=== PATIENT | female | born 1950 | race Caucasian/White ===

== ENCOUNTER 2016-12-16 12:40 | Day surgery (SDC) | payer MEDICARE ==
[~2016-12-16] VITALS: Ht 170.2 cm; Wt 133.8 kg
[~2016-12-16 12:40] MED LIST: 0.9% Sodium Chloride 1,000 ML IV PRN; ASPI81TA2 PO; CALC-846 PO; HCTZ25 PO; MELO-253 PO; OMEP20CA11 PO; Sodium Chloride LOK Flush 10 mL Syringe IV PRN; ZOC10 PO; fentaNYL-PF 50 mCg/mL 2 mL Inj IVPUSH PRN
[2016-12-16 13:26] VITALS: BP 145/87; PULSE 67; RESP 16; O2SAT 97
--- NOTE | 2016-12-16 14:17 | PCM.ENDCOL ---
Colonoscopy Date of Service: Dec 16, 2016 Physician Kamlesh Hunter MD Pre Procedure Diagnosis: screening Post Procedure Dx & Findings: polyp hemmorhoids Procedure Colonoscopy PROCEDURE IN DETAIL: Prep adequate Withdrawal time 17 minutes After unremarkable rectal examination the Olympus video colonoscope was inserted patient's anal canal and was advanced to cecum. Landmarks were identified including the ileocecal valve and appendiceal orifice. Scope was withdrawn systematically. Visualized colonic mucosa showed healthy shiny mucosa with normal healthy-appearing vasculature. In the ascending colon there was a 1 mm polyp was removed completely using cold forceps. In the transverse colon there was a 3 mm polyp which was removed completely using cold snare. In the descending colon, there were two 1 mm polyps which were removed completely using cold forceps. In the rectum, there was a 2 mm polyp which was removed completely using cold snare. In the rectum retroflexion was done which showed hemorrhoids. Anal canal was inspected carefully on the way out and hemorrhoids noted. Impression Polyp 5 status post complete removal Hemorrhoids Recommendation Repeat colonoscopy in 3 years Presedation Assessment Risks and Benefits Informed consent was obtained from the patient after all risks and benefits including but not limited to drug reaction, infection, pain, bleeding, perforation, as well as alternatives were discussed. Patient monitoring Continuous pulse oximetry, cardiac monitoring, blood pressure monitoring, IV access, and oxygen at 2L per nasal cannula. Periprocedural Fentanyl: Fentanyl 125mcg Incrementally Midazolam: Midazolam 6mg Incrementally Complications There were no periprocedural complications identified. Post Procedure Plan Post Procedure Recommendations 1. Restrict activities today. 2. Resume normal activities in the morning. 3. Resume medications. 4. Patient informed of normal post procedure side effects as bloating, drowsiness, blood streaking in the stool. 5. average risk CRCS. If colon polyps come back as: -Hyperplastic- can repeat colonoscopy in 10 years -Tubular adenoma- repeat colonoscopy in 5 years -Tubulovillous/villous adenoma- repeat colonoscopy in 3 years -If any dysplasia- return to clinic as soon as possible 6. Please don't hesitate to call me with any questions. Kamlesh Hunter MD Dec 16, 2016 14:17
[2016-12-16 14:19] VITALS: BP 120/82; PULSE 62; RESP 15; O2SAT 96
[2016-12-16 14:29] VITALS: BP 107/64; PULSE 59; RESP 15; O2SAT 95
[2016-12-16 14:39] VITALS: BP 125/73; PULSE 56; RESP 15; O2SAT 97
--- NOTE | 2016-12-18 14:57 | PATH ---
SURGICAL PATHOLOGY Attending Physician:Kamlesh Hunter M.D. CASE STATUS: Signed Out PATIENT NAME: JAIME HANEY PID: [id number] : 1950 DATE COLLECTED:12/16/2016 20:17 SPECIMEN: 1: Colon, Biopsy 2: Colon, Biopsy 3: Colon, Biopsy 4: Rectum, Biopsy CLINICAL HISTORY: 1). ASCENDING POLYP 2). TRANSVERSE POLYP 3). DESCENDING POLYP 4). RECTUM POLYP FINAL DIAGNOSIS: 1. Ascending Colon, Polyp, Biopsy: Colonic mucosa with a benign lymphoid aggregate. Negative for dysplasia and malignancy. Additional levels were examined. 2. Transverse Colon, Polyp, Biopsy: Serrated lesion, favor hyperplastic polyp. Additional levels were examined. 3. Descending Colon, Polyp, Biopsy: Colonic mucosa with thickened muscularis mucosae, consistent with benign leiomyoma. Negative for atypia, epithelial dysplasia or malignancy. 4. Rectum, Polyp, Biopsy: Hyperplastic polyp. ICD10 K63.5 GROSS DESCRIPTION: The specimen is received in four formalin filled containers labeled with the patient's name. 1). The specimen is sublabeled "ascending polyp" and consists of a 0.3 x 0.2 x 0.2 CM portion of tissue which is entirely submitted in cassettes 1A. 2). The specimen is sublabeled "transverse polyp" and consists of 3 tiny portions of tissue which aggregate to 0.3-0.3 x 0.2 CM. The specimen is entirely submitted in cassette 2A. 3). The specimen is sublabeled "descending polyp" and consists of 2 portions of tissue which aggregate to 0.3 x 0.3 x 0.2 CM. The specimen is entirely submitted in cassette 3A. 4). The specimen is sublabeled "rectal polyp" and consists of a 0.4 x 0.4 x 0.3 CM portion of tissue which is entirely submitted in cassette 4A. 12/16/2016 [facility] ICD-9 CODES: CPT CODES: 1: 00626 2: 03151 3: 68004 4: 80595 Electronically Signed Out Irais Castro MD [facility] Pathology [facility], [place] [address] Technical component performed at [facility], [facility] [address], [place], [address]
[2017-01-07] MEDS ORDERED: SIMV10TA4 PO (14:10)
[2017-01-07] MEDS ORDERED: ASPI-973 PO (14:10)
[2017-01-07] MEDS ORDERED: CELE100C85 PO (14:10)
[2017-01-07] MEDS ORDERED: HYDR25TA4 PO (14:10)
== END 2016-12-16 23:59 | disposition home or self-care (01) ==
LOC: END 12:40
PROVIDERS: ATTEND Internal Medicine
DX: Z12.11 Encounter for screening for malignant neoplasm of colon (principal); K63.5 Polyp of colon; K62.1 Rectal polyp; K64.8 Other hemorrhoids; K21.9 Gastro-esophageal reflux disease without esophagitis; E78.00 Pure hypercholesterolemia, unspecified; I10 Essential (primary) hypertension; Z79.82 Long term (current) use of aspirin

== ENCOUNTER 2017-01-10 05:31 | Day surgery (SDC) | payer MEDICARE ==
[~2017-01-10] VITALS: Ht 170.2 cm; Wt 130.9 kg
[2017-01-10] VITALS (10 sets, daily range): BP systolic 109–138; BP diastolic 57–67; PULSE 57–67; RESP 11–18; O2SAT 93–99
[~2017-01-10 05:31] MED LIST changes: -0.9% Sodium Chloride 1,000 ML IV PRN; +ASPI-973 PO; -ASPI81TA2 PO; +CELE100C85 PO; -HCTZ25 PO; +HYDR25TA4 PO; +SIMV10TA4 PO; -Sodium Chloride LOK Flush 10 mL Syringe IV PRN; -ZOC10 PO; -fentaNYL-PF 50 mCg/mL 2 mL Inj IVPUSH PRN
[2017-01-10] MEDS ORDERED: Propofol 10,000 mCg/mL 20 mL Inj ONE (05:32)
[2017-01-10] MEDS ORDERED: fentaNYL-PF 50 mCg/mL 2 mL Inj ONE (05:32)
[2017-01-10] MEDS ORDERED: Ondansetron 2 mg/mL 2 mL Inj ONE (05:32)
[2017-01-10] MEDS ORDERED: Succinylcholine Chloride 20 mg/mL 5 mL Inj ONE (05:32)
[2017-01-10] MEDS ORDERED: MetoCLOpramide 5 mg/mL 2 mL Inj ONE (05:32)
[2017-01-10] MEDS ORDERED: Dexamethasone 4 mg/mL Inj ONE (05:32)
[2017-01-10] MEDS: Lactated Ringer's 1,000 ML IV SCH ×2 (05:34→07:35)
[2017-01-10] MEDS ORDERED: ACID CONTROLLER PO (05:44)
[2017-01-10] MEDS ORDERED: Lactated Ringer's 500 ML IV PRN (07:49)
[2017-01-10] MEDS ORDERED: Lactated Ringer's 1,000 ML IV SCH (07:49)
[2017-01-10] MEDS ORDERED: EPHEDrine Sulfate 50 mg/mL Inj IVPUSH PRN (07:50)
[2017-01-10] MEDS ORDERED: Phenylephrine 10,000 mCg/mL Inj IVPUSH PRN (07:50)
[2017-01-10] MEDS ORDERED: Atropine 0.4 mg/mL Inj IVPUSH PRN (07:50)
[2017-01-10] MEDS ORDERED: Labetalol 5 mg/mL 4 mL Inj IV PRN (07:50)
[2017-01-10] MEDS ORDERED: fentaNYL-PF 50 mCg/mL 2 mL Inj IVPUSH PRN (07:50)
[2017-01-10] MEDS ORDERED: Ondansetron 2 mg/mL 2 mL Inj IVPUSH PRN ×2 (07:50→09:15)
[2017-01-10] MEDS ORDERED: MetoCLOpramide 5 mg/mL 2 mL Inj IVPUSH PRN (07:50)
--- NOTE | 2017-01-10 07:52 | PCM.HPANE ---
Patient Data Surgeon Admitting Provider: Attending Provider:Ashley Green MD Primary Care Physician:Kate Cruz PA-C Other Provider:Harjinder Larson Anesthesia Reason for Visit Abnormal Uterine Bleeding Ht/WT & BMI Height (Feet): 5 Height (Inches): 7 Weight (Kilograms): 130.9 Body Mass Index 45.00 Allergies Coded Allergies: Nabumetone (Verified Allergy, Severe, SWELLING, ITCHING, 04/12/13) Uncoded Allergies: PEANUTS (Allergy, Severe, ANAPHYLAXIS, 04/12/13) Past Anesthesia History Anesthesia History: Denies:: Abnormal Airway, Anesthesia Reactions, Difficult Intubation, Fam Anesthesia Reaction, Fam Malignant Hypertherm, Malignant Hyperthermia Diabetes History Hx Diabetes?: No MRSA MRSA: No Medications Blood Thinner: Aspirin Hypertension Medication: Yes (HCTZ) Home Meds Incl Beta Tanika: No Reported Medications [Acid Controller] No Conflict Check20 Mg PO DAILY 01/10/17 Simvastatin 10 Mg Rdhivc69 Mg PO HS Ref 0 01/07/17 Hydrochlorothiazide 25 Mg Dwffqq44 Mg PO DAILY 30 Days Ref 0 01/07/17 Celecoxib 100 Mg Fydtsym274 Mg PO BID 01/07/17 Aspirin 81 Mg Xkzpsq10 Mg PO DAILY Ref 0 01/07/17 Discontinued Reported Medications Calcium Carbonate/Mag Hydrox (Antacid Chewable Tablet)1 Each Tab.chew1 Each PO DIRECTED PRN For Dyspepsia or Heartburn 12/13/16 Meloxicam 15 Mg Xmjrat17 Mg PO DAILY 30 Days Ref 0 12/13/16 Omeprazole 20 Mg Capsule.dr20 Mg PO DAILY Ref 0 12/13/16 Aspirin-Expunged Drug, Do Not Renew! 81 Mg Tab81 Mg PO DAILY 04/12/13 Hydrochlorothiazide-Expunged, Do Not Renew! 25 Mg Uwfpml49 Mg PO DAILY 04/12/13 Simvastatin-Expunged Drug, Choose New Med! 10 Mg Edvuqx66 Mg PO HS 04/12/13 History History of ENT Problems?: No HEENT History: Denies:: Abnormal Airway Cataracts Difficult Intubation Dysphagia Glaucoma Hearing Problem Sinus Problem TMJ Denture Type: None Teeth Condition: Within Normal Limits Hx of Heart Problems?: Yes Cardiovascular History: Positive for:: Hypertension Hx of Respiratory Problem?: No Respiratory History: Positive for:: Asthma Use of C-PAP Machine (ANDRES+) Hx Neurologic Problems?: No Neurological History: Denies:: CVA Hx of GI Problems?: Yes Hx of Problems?: No Other Pertinent History: Abnormal uterine bleeding Female Hx: Denies:: Currently Endometriosis (Endometrial polyp) Skin History: Positive for:: History Skin Disorders? (ECZEMA) Denies:: Pressure Ulcers Hx Musculoskeletal Problems?: Yes Musculoskeletal History: Positive for:: Musculoskeletal Trauma (Elbow fx) Hx of Psycho/Social Problems?: No Hx Surgeries?: Yes (Elbow fx, D&C for endometrial polyp) Hx Any Other Health Problems?: Yes Other History: Denies:: Cancer Endocrine Disease Hospitalization Thyroid Disease History Blood Transfusions: Denies:: Blood Transfusions Hx Diabetes: No Hx Alcohol Use: NoHx Substance Use: No Smoking Status: Never Smoker Have You Smoked inLast 12 mo: No Stop/Bang S-Snoring: Do You Snore Loudly: Yes T-Tired: feel tired, fatigued: Yes O-Obsered: Observed not breath: Yes P-Blood Pressure: treated: Yes B- Body Mass Index > 35 kg/m2: Yes A- Age over 50: Yes N- Neck Large Circumference: Yes G- Gender Male: No ANDRES Total Score: 7 Risk Assessment Category Category 1A: Patient has history of documented sleep apnea, and HAS NOT received any narcotic, sedative or anesthesia administration during this stay. Category 1B: Patient has history of documented sleep apnea, and HAS received any narcotic , sedative or anesthesia administration during this stay Category 2: Patient has SUSPECTED Obstructive Sleep Apnea, and HAS received any narcotic , sedative or anesthesia administration during this stay. Category 3: Patient has SUSPECTED Obstructive Sleep Apnea and HAS NOT received narcotic, sedative or anesthesia administration during this stay. Category 4: Outpatient in Procedural Areas with known sleep apnea or who screen positive for High Risk via the STOP/BANG questionnaire. Exam Exam Vital Signs Vital Signs Date Time Temp Pulse Resp B/P Pulse Ox O2 Delivery O2 Flow Rate FiO2 01/10/17 05:59 35.9 64 18 138/67 96 Room Air 01/10/17 05:51 CPAP/BIPAP General Appearance: Alert, Oriented X3, Cooperative, No Acute Distress HEENT/AIRWAY: MP 2, Neck Movement (FROM), Mouth Opening (3 FBMO) Lungs: Clear to Auscultation, Normal Air Movement Heart: Exam Unremarkable, Regular Rate/Rhythm, No Murmurs/Rubs/Gallops Meds/Labs/Diagnostics Admission Meds Current Medications Lactated Ringer's (Lr) 1,000 ml @ 120 mls/hr Q8H20M IV Last administered on t 05:34; Start 01/10/17 at 05:00; Stop 01/10/17 at 13:19 Plan Impression Patient chart reviewed, patient interviewed and anesthestic plan with risks, benefits, and alternatives discussed, and informed consent obtained. NPO per Anesth. Guidelines: Yes ASA Physical Status: ASA3 Severe Disease (BMI 45) Anesthetic Plan: GA Bene/Risks/Altern/Consents: Yes HP Complete Prior to Induction: Yes Billy Mensah MD January 10, 2017 07:20
[2017-01-10] MEDS ORDERED: oxyCODONE-Acetamin 5-325 mg Tablet PO PRN (09:15)
[2017-01-10] MEDS ORDERED: HYDROcodone-APAP 5-325 mg Tablet PO ONE (09:15)
--- NOTE | 2017-01-10 09:16 | PCM.DIGYN ---
Surgical Discharge Instruction Dates of Hospitalization Date of Hospital Admission Providers Admitting Physician: Primary Care Physician: Kate Cruz PA-C Attending Physician: Ashley Green MD Diagnosis at Time of Discharge Diagnosis at time of discharge postmenopausal bleeding Post-operative diagnosis postmenopausal bleeding uterine polyp Problems: Diet Discharge Diet: No restrictions Activity Discharge Activity-General: Try not to overdue, Be up and about, Balance rest and activity Dressing and Incisional Care Hygiene: May shower, NO bathtub, hot tub or whirlpool Additional Instructions Discharge Instructions Please call office if heavy vaginal bleeding, severe abdominal pain, foul smelling discharge, fever more than 100.4 NO sex or tampon for the next 2 weeks Follow Up Plan Follow-up Provider (F9): Ashley Green MD Follow-up appointment: Days, Weeks Call your provider for: Fever, Chills, Shortness of breath, Vomitting, Heavy vaginal bleeding Ashley Green MD January 10, 2017 09:16
--- NOTE | 2017-01-10 12:16 | PCM.ANEP1 ---
Post Anesthesia Phase 1 PACU Phase 1 Assessment Vital Signs Vital Signs Date Time Temp Pulse Resp B/P Pulse Ox O2 Delivery O2 Flow Rate FiO2 01/10/17 10:54 57 18 109/66 94 Room Air 01/10/17 09:05 63 18 121/65 97 Room Air 01/10/17 09:00 60 11 113/58 93 Room Air 01/10/17 08:55 62 14 118/64 96 Room Air 01/10/17 08:45 36.3 62 14 114/62 94 Room Air 01/10/17 08:35 62 16 119/64 96 Room Air 01/10/17 08:29 63 17 110/57 99 Simple Mask 8 01/10/17 08:25 67 18 120/64 97 Simple Mask 8 01/10/17 08:19 36.6 65 17 129/63 97 Simple Mask 8 01/10/17 05:59 35.9 64 18 138/67 96 Room Air 01/10/17 05:51 CPAP/BIPAP Anesthetic Administered: GA Level of Alertness: Awake, talking JAMES's with Equal Strength: Yes Pain: No Nausea or Vomiting: No Cardiovascular Function and Hy: Yes Oxygen Delivery: Room Air Lungs: Clear to Auscultation, Normal Air Movement Dermatome Level: Full Sensation Complications: No Follow up Care: No Billy Mensah MD January 10, 2017 12:16
--- NOTE | 2017-01-10 13:14 | OP ---
[address] [address] OPERATIVE REPORT PATIENT: JAIME HANEY : 1950 MR#: [id number] ADMIT: 01/10/2017 JOB ID: [id number] DATE OF SURGERY: 01/10/2017 SURGEON: Ashley Green MD. PREOPERATIVE DIAGNOSIS(ES): Postmenopausal bleeding, possible uterine fibroid, polyp. POSTOPERATIVE DIAGNOSIS(ES): Postmenopausal bleeding, possible uterine fibroid, polyp. INDICATIONS: A 66-year-old female. She is post menopause. She presented to our office for postmenopausal bleeding and ultrasound showed thickened endometrium. Plan was made to have hysteroscopy, D and C, and possible polypectomy. Discussed with patient about the indication, benefits, risks, alternatives of the procedure. Patient understood there is risk of infection, bleeding, injury to the organs of the uterus around the uterus including but not limited to the bladder, ureters, major vessels, nerves, and bowels. Informed consent signed. PROCEDURE IN DETAIL: The patient was transferred to operating room After anesthesia was noted to be adequate. She was placed in dorsal lithotomy position. She was prepared and draped in normal sterile fashion. A speculum inserted to vagina to expose cervix. The cervix was grasped by single-tooth tenaculum. The uterine cavity was sounded to 9 cm. At this time, the cervix was gently dilated to 7 mm. The MyoSure scope inserted for examination and noticed there is about 2 x 1 cm size polyp from the left uterine wall. Then this polyp was removed by MyoSure and confirmed complete removal, and then instruments removed from her uterus and a sharp curettage was performed. Specimen sent to Pathology. The patient tolerated the procedure well. All instrument, needles, laps and gauzes counted correct twice. Hemostasis was confirmed. The patient was transferred to recovery room in a stable condition. [facility]ITAL[facility]essie
--- NOTE | 2017-01-13 11:07 | PATH ---
SURGICAL PATHOLOGY Attending Physician:Ashley Green MD CASE STATUS: Signed Out PATIENT NAME: JAIME HANEY PID: [id number] : 1950 DATE COLLECTED:01/10/2017 16:46 SPECIMEN: Endometrium, Biopsy CLINICAL HISTORY: 1. ENDOMETRIUM POLYP FINAL DIAGNOSIS: 1.ENDOMETRIAL BIOPSY: MULTIPLE TISSUE FRAGMENTS CONSISTENT WITH BENIGN ENDOMETRIAL POLYPS, NEGATIVE FOR ATYPIA. ICD10 CODE N84.0 GROSS DESCRIPTION: The specimen is received in one formalin filled container labeled with the patient's name, sublabeled "endometrium polyp" and consists of multiple portions of tissue and blood which aggregate to 2.5 x 1.5 x 0.5 CM. The specimen is entirely submitted in 2 cassettes. 01/10/2017 [facility] MICRO DESCRIPTION: See diagnosis. ICD-9 CODES: CPT CODES: 1: 37699 Electronically Signed Out Torres Tobar MD [facility] Pathology [facility] [address], [place] [address] Technical component performed at [facility], [facility] [address], [address]
== END 2017-01-10 23:59 | disposition home or self-care (01) ==
LOC: SAS 05:31
PROVIDERS: ATTEND Obstetrics & Gynecology
DX: N84.0 Polyp of corpus uteri (principal); N95.0 Postmenopausal bleeding; I10 Essential (primary) hypertension; Z79.82 Long term (current) use of aspirin; Z87.891 Personal history of nicotine dependence
CPT/HCPCS: 58558; J0330; J1100; J1885; J2405; J2765; J3010; J7120